=== PATIENT | female | born 1975 | race Caucasian/White ===

== ENCOUNTER 2023-03-02 00:56 | Emergency (ER) | payer BC, OTHER ==
[~2023-03-02] VITALS: Ht 177.8 cm; Wt 70.3 kg
[~2023-03-02 00:56] MED LIST: AMPH20TA3 PO; CITA-107 PO; LORA0.5T83 PO; NALT50TA PO
[2023-03-02] MEDS ORDERED: MORPHINE 4 MG SYG ONE (01:59)
[2023-03-02] MEDS ORDERED: ONDANSETRON 4MG INJ IVP ONE (02:00)
[2023-03-02] MEDS ORDERED: MORPHINE 8MG VIAL IVP ONE (02:00)
[2023-03-02] MEDS ORDERED: LACTATED RINGERS 1000ML 1,000 ML IV ONE (02:00)
[2023-03-02 04:11] VITALS: BP 132/76; PULSE 85; RESP 16; O2SAT 99
== END 2023-03-02 04:11 | disposition home or self-care (01) ==
LOC: EDH 00:56
DX: K64.4 Residual hemorrhoidal skin tags (principal); Z88.7 Allergy status to serum and vaccine; Z90.49 Acquired absence of other specified parts of digestive tract
CPT/HCPCS: 99284; 96374; 96375; J2270 ×2; J2405